=== PATIENT | female | born 1980 | race American Indian/Alaskan Native ===

== ENCOUNTER 2017-11-07 07:07 | Day surgery (SDC) | payer OTHER ==
[~2017-11-07 07:07] MED LIST: ADRENALIN ONE; ANTIBIOTIC OINT TP ONE; LACTATED RINGERS 1,000 ML IV SCH; NACL 0.9% 1000 ML 3,000 ML ONE; VERSED IV NR; XYLOCAINE 1% 20 mL ONE
--- NOTE | 2017-11-07 07:23 | Anesthesia Consultation ---
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
[2017-11-07] MEDS ORDERED: ZEMURON IV ONE (07:29)
[2017-11-07] MEDS ORDERED: SUBLIMAZE ONE ×2 (07:29→09:25)
[2017-11-07] MEDS ORDERED: DECADRON ONE (07:29)
[2017-11-07] MEDS ORDERED: DIPRIVAN 10 MG/ML IV ONE (07:29)
[2017-11-07] MEDS ORDERED: QUELICIN ONE (07:29)
[2017-11-07] MEDS ORDERED: ZOFRAN ONE ×4 (07:29→16:28)
[2017-11-07] MEDS ORDERED: ANCEF/STERILE WATER 2 GM/20 ML IV NR (08:00)
[2017-11-07] MEDS ORDERED: XYLOCAINE 1% 20 mL ONE (08:03)
[2017-11-07] MEDS ORDERED: ADRENALIN IV ONE (09:38)
[2017-11-07] MEDS ORDERED: XYLOCAINE 1% 20 mL INFILTRATI ONE (09:39)
[2017-11-07] MEDS ORDERED: NACL 0.9% IR ONE (09:40)
[2017-11-07] MEDS ORDERED: NACL 0.9% 1000 ML IR ONE (09:40)
[2017-11-07] MEDS ORDERED: TORADOL IV PRN (12:13)
[2017-11-07] MEDS ORDERED: DEMEROL IV PRN (12:13)
[2017-11-07] MEDS ORDERED: ZOFRAN IV PRN (12:13)
--- NOTE | 2017-11-07 12:13 | Anesthesia Consultation ---
Anesthesia Consult and Med Hx Date of service: 11/07/17 - Airway Anesthetic Teeth Evaluation: Good ROM Head & Neck: Adequate Mental/Hyoid Distance: Adequate Mallampati Class: Class I Intubation Access Assessment: Good - Pulmonary Exam CTA: Yes - Cardiac Exam Cardiac Exam: RRR - Pre-Operative Health Status ASA Pre-Surgery Classification: ASA2 Proposed Anesthetic Plan: General - Central Nervous System Hx Psychiatric Problems: No - Other Systems Hx Alcohol Use: No Hx Substance Use: No Hx Cancer: No - Additional Comments Anesthesia Medical History Comments: patients denies any medical history
--- NOTE | 2017-11-07 12:13 | Anesthesia Day of Surgery ---
Anesthesia Day of Surgery - Day of Surgery Patient Examined: Yes Patient H&P Reviewed: Yes Patient is NPO: Yes
[2017-11-07] MEDS ORDERED: TORADOL ONE ×2 (12:38)
[2017-11-07] MEDS ORDERED: NEOSTIGMINE ONE ×2 (12:38)
[2017-11-07] MEDS ORDERED: ROBINUL ONE ×2 (12:38)
[2017-11-07] MEDS: DILAUDID IV PRN ×3 (13:11→13:50)
[2017-11-07] MEDS ORDERED: DILAUDID ONE ×4 (13:12→13:51)
--- NOTE | 2017-11-07 14:18 | Post Anesthesia Evaluation ---
- Post Anesthesia Evaluation Patient Participated: Yes Airway Patent: Yes Stable Respiratory Function: Yes Nausea/Vomiting: No Temp > 96.8F: Yes Pain Manageable: Yes Adequeate Hydration: Yes Anesthesia Complications: No
[2017-11-07 16:07] VITALS: BP 133/78
[2017-11-07] MEDS ORDERED: PHENERGAN PO PRN (16:20)
[2017-11-07] MEDS ORDERED: ZOFRAN IV ONE (16:20)
[2017-11-07] MEDS ORDERED: PHENERGAN ONE (16:28)
--- NOTE | 2017-11-08 13:13 | Operative Report ---
Operative Report Operative Report: Preop Diagnosis: Unacceptable Cosmetic Appearance Postop Diagnosis: Same Procedure: Liposuction of upper and lower abdomen, full waistline, bra rolls and axilla Findings: Removal of 4450cc of pure fat and 1400cc of fluid Specimens: None Anesthesia: General Surgeon: Dr. Albertina Lala Practice Clinician(s): None EBL: 50cc Procedure Details: After review of pertinent history and physical exam data and marking the patient was brought into the operating room and placed supine on the OR table. After induction of adequate general anesthesia the patient's abdomen was prepped and draped in the usual sterile surgical fashion. After timeout, 4 anterior incisions were made using a No. 11 blade for subcutaneous infiltration of the abdominal and anterior waist areas with tumescent solution. 1.5 L was infiltrated and once this was done sufficient time elapsed for epinephrine effect was allowed. Using power assisted liposuction, subcutaneous fat was removed until satisfactory contour was achieved. Anterior incisions were closed each with a single 4-0 Monocryl subcutaneous suture. The patient was then turned to the prone position where 5 incisions were made using a No. 11 blade and once again tumescent solution was infiltrated, approximately 1.5 L in all areas for total body infiltration of 3 L. Power assisted liposuction was performed removing subcutaneous fat to a level of satisfactory contour, after which point all incisions were closed with 4-0 Monocryl sutures. The patient was then turned back supine and awakened from general anesthesia. Post operative compression garment was placed and padded in the OR, after which the patient was transferred to PACU in stable condition. There were no complications and all sponge and needle counts were correct at the end of the case. Patient tolerated the procedure well.
--- NOTE | 2017-11-08 13:33 | Short Stay Summary ---
Short Stay Documentation Date of service: 11/07/17 - History H&P: obtained from office Past Medical History: No medical history Past Surgical History: Other Social history: , lives with family - Allergies and Medications Current Medications: Allergies Sulfa (Sulfonamide Antibiotics) Allergy (Verified 11/06/17 10:27) Swelling Home Medications Medication Instructions Recorded Confirmed Last Taken Type No Known Home Medications [No 11/06/17 11/06/17 Unknown History Reported Home Medications] - Physical exam General appearance: no acute distress Integumentary: no rash HEENT: Atraumatic, PERRLA, EOMI, Mucous membr. moist/pink Lungs: Clear to auscultation, Normal air movement Breasts: normal Heart: Regular rate, Normal S1, Normal S2 Gastrointestinal: normal Female Genitourinary: deferred Rectal Exam: deferred Extremities: no ischemia, No edema, Full ROM Neurological: Normal gait, Normal speech, Strength at 5/5 X4 ext - Brief post op/procedure progress note Date of procedure: 11/07/17 (Procedure performed as planned.) Pre-op diagnosis: Unacceptable Cosmetic Appearance Post-op diagnosis: same Procedure: Liposuction of upper and lower abdomen, full waistline, bra rolls and axilla Anesthesia: GETA Findings: Total Lipoaspirate: 5850cc; 1400 fluid, 4450 pure fat Surgeon: EDMUND WHITMORE Estimated blood loss: 50-100ml Pathology: none Condition: stable - Hospital course Hospital course: Unremarkable - Disposition Condition at discharge: Good - Discharge Diagnoses (1) Encounter for cosmetic surgery Status: Resolved Short Stay Discharge Plan Additional Instructions: NO HEAVY LIFTING. MONITOR SITES FOR INCREASING REDNESS, WARMTH, SWELLING, OR DRAINAGE. WEAR GIRDLE AND CONSTRICTIVE CLOTHING DIRECTED BY SURGEON. Follow up with: PRIMARY CARE, [Primary Care Provider] - 7 Days
== END 2017-11-07 07:08 ==
LOC: OR 07:07
PROVIDERS: ATTEND Plastic Surgery
DX: Z41.1 Encounter for cosmetic surgery (principal); E66.9 Obesity, unspecified; Z88.0 Allergy status to penicillin; Z68.31 Body mass index [BMI] 31.0-31.9, adult
CPT/HCPCS: 15877; 81025; J0171; J0330; J0690; J1100; J1170; J1885; J2250; J2405; J2704; J2710; J3010; J7030; J7120; Q0169